=== PATIENT | male | born 1980 | race Native Hawaiian/Other Pacific Islander ===

== ENCOUNTER 2017-08-20 11:33 | Outpatient (CLI) | payer OTHER | END 2017-08-20 19:09 | disposition home or self-care (01) | LOC: MAMMO 11:33 | DX: N63.10 Unspecified lump in the right breast, unspecified quadrant (principal) ==

== ENCOUNTER 2018-01-06 10:02 | Outpatient (CLI) | payer OTHER | END 2018-01-06 22:22 | disposition home or self-care (01) | LOC: RAD 10:02 | DX: J20.8 Acute bronchitis due to other specified organisms (principal) ==

== ENCOUNTER 2019-09-14 07:44 | Outpatient (CLI) | payer OTHER | END 2019-09-14 22:34 | disposition home or self-care (01) | LOC: NM 07:44 | DX: E05.90 Thyrotoxicosis, unspecified without thyrotoxic crisis or storm (principal) | CPT/HCPCS: A9516 ==

== ENCOUNTER 2022-10-08 13:32 | Outpatient (CLI) | payer OTHER | END 2022-10-08 22:15 | disposition home or self-care (01) | LOC: CT 13:32 | PROVIDERS: ATTEND Physician Assistant | DX: R53.83 Other fatigue (principal) ==